=== PATIENT | female | born 2000 | race Caucasian/White ===

== ENCOUNTER 2018-01-22 23:40 | Emergency (ER) | payer SELFPAY ==
[2018-01-23] MEDS ORDERED: NORMAL SALINE 1000 ML 1,000 ML IV ONE (02:10)
--- NOTE | 2018-01-23 02:12 | ER Document Report ---
ED General - General Chief Complaint: Chest Pain Stated Complaint: CHEST PAIN Time Seen by Provider: 01/23/18 01:52 Mode of Arrival: Ambulatory Information source: Patient Notes: Patient presents with a 5 day history of abdominal cramping. Patient states she has had diarrhea for the past 2 weeks and typically has 3-7 bowel movements each day. Patient denies any nausea, vomiting or blood in her stool. Patient denies any fever or cough. Patient states that around 11 PM tonight she developed left-sided chest pain and left lateral rib tenderness. Patient denies any history of PE or DVT in the past. Patient denies any recent immobilization. TRAVEL OUTSIDE OF THE [place] IN LAST 30 DAYS: No - HPI Onset/Duration: Persistent Quality of pain: Achy, Cramping Pain Level: 3 Associated symptoms: Chest pain, Diarrhea. denies: Nonproductive cough, Productive cough, Fever, Nausea, Vomiting, Shortness of breath Exacerbated by: Movement Relieved by: Denies Similar symptoms previously: No Recently seen / treated by doctor: Yes - Related Data Allergies/Adverse Reactions: No Known Allergies Allergy (Verified 01/19/18 18:51) Past Medical History - General Information source: Patient - Social History Smoking Status: Never Smoker Chew tobacco use (# tins/day): No Drug Abuse: None Occupation: None Lives with: Spouse/Significant other Family History: Reviewed & Not Pertinent Patient has suicidal ideation: No Patient has homicidal ideation: No Renal/ Medical History: Denies: Hx Peritoneal Dialysis GI Medical History: Reports: Hx Gastroesophageal Reflux Disease Psychiatric Medical History: Reports: Hx Anxiety Surgical Hx: Negative Review of Systems - Review of Systems Constitutional: Recent illness - Recently evaluated for diarrhea symptoms EENT: No symptoms reported Cardiovascular: Chest pain. denies: Palpitations, Dizziness, Lightheaded Respiratory: No symptoms reported. denies: Cough, Short of breath Gastrointestinal: Abdominal pain, Diarrhea. denies: Nausea, Vomiting, Blood streaked bowels, Black stools, Rectal bleeding Genitourinary: No symptoms reported. denies: Dysuria Female Genitourinary: No symptoms reported. denies: Vaginal discharge, Vaginal bleeding Musculoskeletal: No symptoms reported. denies: Back pain Skin: No symptoms reported Hematologic/Lymphatic: No symptoms reported Neurological/Psychological: No symptoms reported Physical Exam - Vital signs Vitals: Temp Pulse Resp BP Pulse Ox 98.8 F 107 H 18 111/74 98 04/13/18 00:04 01/23/18 00:04 01/23/18 00:04 01/23/18 00:04 01/23/18 00:04 - General General appearance: Appears well, Alert In distress: None - HEENT Head: Normocephalic, Atraumatic Conjunctiva: Normal Nasal: Normal Mouth/Lips: Normal Mucous membranes: Normal Pharynx: Normal Neck: Normal, Supple. No: Lymphadenopathy - Respiratory Respiratory status: No respiratory distress Chest status: Tender, Pain on movement Breath sounds: Normal. No: Nonproductive cough, Rales, Rhonchi, Stridor, Wheezing Chest palpation: Tender - Cardiovascular Rhythm: Tachycardia Heart sounds: S1 appreciated, S2 appreciated Murmur: No - Abdominal Inspection: Normal Distension: No distension Bowel sounds: Normal Tenderness: Tender - generalized abd tenderness Organomegaly: No organomegaly - Back Back: Normal, Nontender. No: CVA tenderness - Extremities General upper extremity: Normal inspection, Normal ROM General lower extremity: Normal inspection, Normal ROM - Neurological Neuro grossly intact: Yes Cognition: Normal Nancy Coma Scale Eye Opening: Spontaneous Montgomery Coma Scale Verbal: Oriented Montgomery Coma Scale Motor: Obeys Commands Nancy Coma Scale Total: 15 - Psychological Associated symptoms: Normal affect, Normal mood - Skin Skin Temperature: Warm Skin Moisture: Dry Skin Color: Normal Course - Re-evaluation Re-evalutation: 01/23/18 04:30 RN states that pt eloped. Pt not in room. RN states that patient had mentioned something about her needing to leave to go to work. - Vital Signs Vital signs: Temp Pulse Resp BP Pulse Ox 98.8 F 90 20 114/65 98 01/23/18 00:04 01/23/18 04:00 01/23/18 04:00 01/23/18 04:00 01/23/18 04:00 - Laboratory Result Diagrams: 01/23/18 03:15 01/23/18 03:15 Laboratory results interpreted by me: 01/23/18 01/23/18 01/23/18 03:15 03:15 04:20 WBC 12.2 H Eosinophils % 16.6 H Absolute Eosinophils 2.0 H Sodium 145.4 H Urine Protein 100 H Urine Ketones 20 H Urine Urobilinogen 2.0 H Ur Leukocyte Esterase SMALL H Discharge - Discharge Clinical Impression: Abdominal pain Qualifiers: Abdominal location: unspecified location Qualified Code(s): R10.9 - Unspecified abdominal pain Chest pain Qualifiers: Chest pain type: unspecified Qualified Code(s): R07.9 - Chest pain, unspecified Diarrhea Qualifiers: Diarrhea type: unspecified type Qualified Code(s): R19.7 - Diarrhea, unspecified Disposition: ELOPED
[2018-01-23 03:27] LABS: ABSOLUTE LYMPHOCYTES (AUTO) 2.1 10^3/uL (0.5-4.7); ABSOLUTE MONOCYTES (AUTO) 0.6 10^3/uL (0.1-1.4); ABSOLUTE NEUT (AUTO) 7.4 10^3/uL (1.7-8.2); BASOPHILS % (AUTO) 0.3 % (0-2); EOSINOPHILS % (AUTO) 16.6 % (0-6); HEMATOCRIT 37.5 % (36.0-47.0); HEMOGLOBIN 12.9 g/dL (12.0-15.5); LYMPHOCYTES % (AUTO) 17.5 % (13-45); MEAN CORPUSCULAR HEMOGLOBIN 31.3 pg (27.0-33.4); MEAN CORPUSCULAR HGB CONC 34.5 g/dL (32.0-36.0); MEAN CORPUSCULAR VOLUME 91 fl (80-97); MONOCYTES % (AUTO) 4.7 % (3-13); PLATELET COUNT 307 10^3/uL (150-450); RED BLOOD COUNT 4.14 10^6/uL (3.72-5.28); RED CELL DISTRIBUTION WIDTH 11.9 % (11.5-14.0); SEGMENTED NEUTROPHILS % (AUTO) 60.9 % (42-78); TOTAL CELLS COUNTED % (AUTO) 100 %; WHITE BLOOD COUNT 12.2 10^3/uL (4.0-10.5)
[2018-01-23 03:37] LABS: ALANINE AMINOTRANSFERASE 21 U/L (5-35); ALBUMIN 4.1 g/dL (3.7-5.6); ALKALINE PHOSPHATASE 66 U/L (50-135); ANION GAP 15 (5-19); ASPARTATE AMINO TRANSFERASE 14 U/L (5-30); BILIRUBIN,DIRECT 0.2 mg/dL (0.0-0.4); BILIRUBIN,TOTAL 0.3 mg/dL (0.2-1.3); BLOOD UREA NITROGEN 8 mg/dL (7-20); CALCIUM 9.8 mg/dL (8.4-10.2); CARBON DIOXIDE 26 mmol/L (22-30); CHLORIDE 104 mmol/L (98-107); GLUCOSE 96 mg/dL (75-110); LIPASE 55.4 U/L (23-300); POTASSIUM 3.6 mmol/L (3.6-5.0); SODIUM 145.4 mmol/L (137-145); TOTAL PROTEIN 7.3 g/dL (6.3-8.2)
--- NOTE | 2018-01-23 03:49 | RADIOLOGY REPORT (SQ) ---
EXAM DESCRIPTION: CHEST 2 VIEWS CLINICAL HISTORY: 17 years Female, cp COMPARISON: None. NUMBER OF VIEWS/TECHNIQUE: 2, PA and Lateral LIMITATIONS: None. FINDINGS: Normal lung volume. Clear parenchyma. Normal cardiac silhouette. Intact bony thorax. IMPRESSION: No acute cardiopulmonary findings.
[2018-01-23 04:49] LABS: APPEARANCE,URINE SLIGHTLY-CLOUDY; BILIRUBIN,URINE NEGATIVE (NEGATIVE); COLOR,URINE AMBER; GLUCOSE, URINE NEGATIVE (NEGATIVE); KETONES,URINE 20 mg/dL (NEGATIVE); LEUKOCYTE ESTERASE,URINE SMALL (NEGATIVE); NITRITE,URINE NEGATIVE (NEGATIVE); PROTEIN,URINE 100 mg/dL (NEGATIVE); URINE SPECIFIC GRAVITY 1.029
[2018-01-23 04:51] VITALS: BP 114/65
--- NOTE | 2018-01-24 09:44 | EKG REPORT ---
SEVERITY:- ABNORMAL ECG - SINUS RHYTHM LEFT AXIS DEVIATION NONSPECIFIC T ABNORMALITIES, ANTERIOR LEADS : Confirmed by: Anuj Mari MD 24-Jan-2018 09:43:30
== END 2018-01-23 04:55 | disposition left against medical advice (07) ==
LOC: ER 23:40
DX: R07.9 Chest pain, unspecified (principal); R10.9 Unspecified abdominal pain; R19.7 Diarrhea, unspecified; R07.81 Pleurodynia
CPT/HCPCS: 93005; 99281; 96360; 96361; 36415; 83690; 84703; 85025; 80053; 81001; 84484; 71046; 93010; J7030

== ENCOUNTER 2018-03-11 14:43 | Emergency (ER) | payer SELFPAY ==
[2018-03-11] MEDS ORDERED: DIPHENHYDRAMINE HCL 50 MG CAPSULE PO ONE (16:41)
[2018-03-11] MEDS ORDERED: BUSPIRONE HCL 10 MG TABLET PO ONE (16:41)
--- NOTE | 2018-03-11 16:42 | ER Document Report ---
ED General - General Chief Complaint: Numbness Stated Complaint: CHEST PAIN/LEFT SIDE NUMBNESS Time Seen by Provider: 03/11/18 16:41 Notes: Chief complaint: Nervousness History of complain:( obtained from----patient) 17-year-old female presents today with general nervousness after taking a friend's trazodone. With a history of anxiety. She has been having anxiety for 4 years but not on any medication. Early this morning at 5:00 felt anxious nervous took the trazodone of unknown amount. 1 tablet. No fever chills or other constitutional symptoms Onset: As above Duration: Gradual Severity: Mild to moderate Quality: Unknown Context: Not applicable Exacerbating factor and relieving factors: None REVIEW OF SYSTEMS: CONSTITUTIONAL : Denies fever, chills, or sweats. Denies recent illness. EENT: Denies eye, ear, throat, or mouth pain or symptoms. Denies nasal or sinus congestion or discharge. Denies throat, tongue, or mouth swelling or difficulty swallowing. CARDIOVASCULAR: Denies chest pain. Denies palpitations or racing or irregular heart beat. Denies ankle edema. RESPIRATORY: Denies cough, cold, or chest congestion. Denies shortness of breath, difficulty breathing, or wheezing. GASTROINTESTINAL: Denies distention. Denies nausea, vomiting, or diarrhea. Denies blood in vomitus, stools, or per rectum. Denies black, tarry stools. Denies constipation. GENITOURINARY: Denies difficulty urinating, painful urination, burning, frequency, blood in urine, or discharge. FEMALE GENITOURINARY: Denies vaginal bleeding, heavy or abnormal periods, irregular periods. Denies vaginal discharge or odor. MUSCULOSKELETAL: Denies back or neck pain or stiffness. Denies joint pain or swelling. SKIN: Denies rash, lesions or sores. HEMATOLOGIC : Denies easy bruising or bleeding. LYMPHATIC: Denies swollen, enlarged glands. NEUROLOGICAL: Denies confusion or altered mental status. Denies passing out or loss of consciousness. Denies dizziness or lightheadedness. Denies headache. Denies weakness or paralysis or loss of use of either side. Denies problems with gait or speech. Denies sensory loss, numbness, or tingling. Denies seizures. PSYCHIATRIC: Denies anxiety or stress. Denies depression, suicidal ideation, or homicidal ideation. ALL OTHER SYSTEMS REVIEWED AND NEGATIVE. PHYSICAL EXAMINATION: GENERAL: Well-appearing, well-nourished and in no acute distress. HEAD: Atraumatic, normocephalic. EYES: Pupils equal round and reactive to light, extraocular movements intact, conjunctiva are normal. ENT: Nares patent, oropharynx clear without exudates. Moist mucous membranes. NECK: Normal range of motion, supple without lymphadenopathy LUNGS: Breath sounds clear to auscultation bilaterally and equal. No wheezes rales or rhonchi. HEART: Regular rate and rhythm without murmurs ABDOMEN: Soft, nontender, nondistended abdomen. No guarding, no rebound. No masses appreciated. Examination of genitals-deferred Musculoskeletal: Normal range of motion, no pitting or edema. No cyanosis. NEUROLOGICAL: Cranial nerves grossly intact. Normal speech, normal gait. Normal sensory, motor exams PSYCH: Normal mood, normal affect. Feeling anxious but not depressed or suicidal ideation SKIN: Warm, Dry, normal turgor, no rashes or lesions noted. Dictation was performed using [employer] voice recognition software TRAVEL OUTSIDE OF THE [place] IN LAST 30 DAYS: No - Related Data Allergies/Adverse Reactions: No Known Allergies Allergy (Verified 03/11/18 14:45) Past Medical History - Social History Smoking Status: Never Smoker Chew tobacco use (# tins/day): No Frequency of alcohol use: None Drug Abuse: None Family History: Reviewed & Not Pertinent Patient has suicidal ideation: No Patient has homicidal ideation: No Renal/ Medical History: Denies: Hx Peritoneal Dialysis GI Medical History: Reports: Hx Gastroesophageal Reflux Disease Psychiatric Medical History: Reports: Hx Anxiety Review of Systems - Review of Systems Notes: Appear to be dehydrated Physical Exam - Vital signs Vitals: Temp Pulse Resp BP Pulse Ox 98.6 F 90 16 106/74 99 03/11/18 14:53 03/11/18 14:53 03/11/18 14:53 03/11/18 14:53 03/11/18 14:53 - Notes Notes: Appear to be dehydrated Course - Vital Signs Vital signs: Temp Pulse Resp BP Pulse Ox 98.6 F 90 16 106/74 99 03/11/18 14:53 03/11/18 14:53 03/11/18 14:53 03/11/18 14:53 03/11/18 14:53 Discharge - Discharge Clinical Impression: Anxiety Condition: Fair Disposition: HOME, SELF-CARE Instructions: Anxiety ([facility]) Prescriptions: Buspirone HCl [Buspar 5 mg Tablet] 1 tab PO DAILY #15 tab
[2018-03-11 17:12] VITALS: BP 112/68
== END 2018-03-11 17:14 | disposition home or self-care (01) ==
LOC: ER 14:43
DX: F41.9 Anxiety disorder, unspecified (principal); R20.0 Anesthesia of skin; K21.9 Gastro-esophageal reflux disease without esophagitis
CPT/HCPCS: 99284

== ENCOUNTER 2018-09-29 07:53 | Emergency (ER) | payer SELFPAY ==
[2018-09-29] MEDS ORDERED: ACETAMINOPHEN 325 MG TABLET PO ONE (08:09)
--- NOTE | 2018-09-29 08:18 | ER Document Report ---
ED General - General Chief Complaint: Cold Symptoms Stated Complaint: COUGH,CONGESTION,HEADACHE Time Seen by Provider: 09/29/18 08:12 Notes: Patient is a 17-year-old female that presents to the emergency department for chief complaint of cough and sore throat. Patient states she has had about 4 days of cough, with productive sputum, occasionally green, she had associated headache with this and sore throat. She overall feels weak and had some chills. She denies any sick contacts, she did not receive the flu vaccine this year. She has had some sinus congestion associated with this, and sinus pressure. She denies having chest pain, or shortness of breath, but mainly the cough. No other complaints at this time. Patient reports a history of asthma, but does not currently have any medications for it at home. Past Medical History: Asthma Past Surgical History: Denies surgical history Social History: Denies tobacco, alcohol or illicit drug use. Family History: Reviewed and noncontributory for presenting illness Allergies: Reviewed, see documented allergy list. REVIEW OF SYSTEMS: Other than noted above, the 12 point review of systems was reviewed with the patient and were negative, all pertinent findings are included in the HPI. PHYSICAL EXAMINATION: Vital signs reviewed, nursing noted reviewed. GENERAL: Well-appearing, well-nourished and in no acute distress. HEAD: Atraumatic, normocephalic. EYES: Eyes appear normal, extraocular movements intact, sclera anicteric, conjunctiva are normal. ENT: nares patent, oropharynx clear without exudates. Moist mucous membranes. TMs appear normal bilaterally. NECK: Normal range of motion, supple without lymphadenopathy LUNGS: Patient does have bilateral trace wheezing, scattered throughout all lung partida, no acute respiratory distress HEART: Regular rate and rhythm without murmurs ABDOMEN: Soft, nontender, normoactive bowel sounds. No rebound, guarding, or rigidity. No masses appreciated. EXTREMITIES: Nontender, good range of motion, no pitting or edema. NEUROLOGICAL: No focal neurological deficits. Moves all extremities spontaneously Motor and sensory grossly intact on exam. PSYCH: Normal mood, normal affect. SKIN: Warm, Dry, normal turgor, no rashes or lesions noted on exposed skin TRAVEL OUTSIDE OF THE [place] IN LAST 30 DAYS: No - Related Data Allergies/Adverse Reactions: No Known Allergies Allergy (Verified 09/29/18 07:53) Past Medical History - Social History Smoking Status: Never Smoker Family History: Reviewed & Not Pertinent Renal/ Medical History: Denies: Hx Peritoneal Dialysis GI Medical History: Reports: Hx Gastroesophageal Reflux Disease Psychiatric Medical History: Reports: Hx Anxiety Physical Exam - Vital signs Vitals: Temp Pulse Resp BP Pulse Ox 98.0 F 88 15 106/59 L 98 09/29/18 07:57 09/29/18 07:57 09/29/18 07:57 09/29/18 07:57 09/29/18 07:57 Course - Re-evaluation Re-evalutation: Patient was given DuoNeb breathing treatment, she did have some wheezing on her exam, sounded improved on repeat evaluation, her chest x-ray was reviewed and negative for pneumonia, strep testing negative, influenza testing negative, this point I will discharge the patient home with an albuterol inhaler, and she is advised to follow-up with her primary care physician. Patient agreeable to plan of care and discharged home. - Vital Signs Vital signs: Temp Pulse Resp BP Pulse Ox 97.7 F 84 18 103/59 L 99 09/29/18 09:32 09/29/18 09:32 09/29/18 09:32 09/29/18 09:32 09/29/18 09:32 Discharge - Discharge Clinical Impression: URI (upper respiratory infection) Qualifiers: URI type: unspecified URI Qualified Code(s): J06.9 - Acute upper respiratory infection, unspecified Condition: Stable Disposition: HOME, SELF-CARE Additional Instructions: Please use the albuterol inhaler every 4-6 hours for the next 3-5 days, then as needed after that, he can also use [id number] medications to help with your symptoms and cough, he can also take the prescribed Tessalon Perles to help with her cough symptoms as well. Please follow-up with the primary care physician in 2-3 days. Prescriptions: Benzonatate [Tessalon Perles 100 mg Capsule] 100 mg PO Q8HP PRN #40 capsule PRN Reason: Cough Forms: Return to Work Referrals: POLINA ORDONEZ DO [NO LOCAL MD] - Follow up in 3-5 days
[2018-09-29] MEDS ORDERED: IPRATROPIUM/ALBUTEROL 0.5-2.5 MG/3 ML AMPUL NEB ONE (08:23)
--- NOTE | 2018-09-29 09:14 | RADIOLOGY REPORT (SQ) ---
EXAM DESCRIPTION: CHEST 2 VIEWS COMPLETED DATE/TIME: 09/29/2018 9:06 am REASON FOR STUDY: cough COMPARISON: 01/23/2018 EXAM PARAMETERS: NUMBER OF VIEWS: two views TECHNIQUE: Digital Frontal and Lateral radiographic views of the chest acquired. RADIATION DOSE: NA LIMITATIONS: none FINDINGS: LUNGS AND PLEURA: No opacities, masses or pneumothorax. No pleural effusion. MEDIASTINUM AND HILAR STRUCTURES: No masses or contour abnormalities. HEART AND VASCULAR STRUCTURES: Heart normal size. No evidence for failure. BONES: No acute findings. HARDWARE: None in the chest. OTHER: No other significant finding. IMPRESSION: Normal chest radiographs. No focal airspace opacity. TECHNICAL DOCUMENTATION: JOB ID: [id number] [employer]- All Rights Reserved Reading location - IP/workstation name: [email or web address]
[2018-09-29 09:23] LABS: A TYPE INFLUENZA AG NEGATIVE (NEGATIVE); B INFLUENZA AG NEGATIVE (NEGATIVE)
[2018-09-29] MEDS ORDERED: ALBUTEROL SULFATE HFA (90 MCG/PUFF) 8 GM MDI (1 MDI/ER DISP) IH SCH (09:30)
[2018-09-29 09:34] VITALS: BP 103/59
== END 2018-09-29 09:36 | disposition home or self-care (01) ==
LOC: ER 07:53
DX: J06.9 Acute upper respiratory infection, unspecified (principal); R51 Headache
CPT/HCPCS: 94640; 99283; 87070; 87880; 87804; 71046; J3490; J7620

== ENCOUNTER 2018-10-29 10:38 | Emergency (ER) | payer SELFPAY ==
--- NOTE | 2018-10-29 11:15 | ER Document Report ---
ED Medical Screen (RME) - General Chief Complaint: Flu Symptoms Stated Complaint: VOMITING AND COUGH Time Seen by Provider: 10/29/18 11:01 Mode of Arrival: Ambulatory Information source: Patient Notes: This is a 17-year-old female with no medical problems who is 14 weeks (first ) who presents to the emergency room with cough, congestion, sore throat, myalgias, subjective fevers and chills. TRAVEL OUTSIDE OF THE [place] IN LAST 30 DAYS: No - HPI Onset: This morning Onset/Duration: Gradual Quality of pain: Achy Severity: Mild Pain Level: 1 Associated Symptoms: Cough (nonproductive). denies: Shortness of breath Exacerbated by: Denies Relieved by: Denies Similar symptoms previously: No Recently seen / treated by doctor: No - Related Data Smoking: Non-smoker Frequency of alcohol use: None Drug Abuse: None Allergies/Adverse Reactions: No Known Allergies Allergy (Verified 10/29/18 10:39) Past Medical History - General Information source: Patient - Social History Cigarette use (# per day): No Chew tobacco use (# tins/day): No Frequency of alcohol use: None Drug Abuse: None Lives with: Family Family history: None - Medical History Medical History: Negative Renal/ Medical History: Denies: Hx Peritoneal Dialysis GI Medical History: Reports: Hx Gastroesophageal Reflux Disease Psychiatric Medical History: Reports: Hx Anxiety Surgical Hx: Negative Review of Systems - Review of Systems Constitutional: Chills, Fever - Patient states she has had subjective fevers. EENT: Nose congestion, Throat pain. denies: Difficulty swallowing Cardiovascular: denies: Chest pain, Palpitations, Heart racing Respiratory: Cough. denies: Hemoptysis, Short of breath, Wheezing Gastrointestinal: Nausea. denies: Abdominal pain, Vomiting Genitourinary: No symptoms reported Female Genitourinary: No symptoms reported Musculoskeletal: Muscle pain. denies: Joint pain, Neck pain Skin: No symptoms reported. denies: Rash Hematologic/Lymphatic: No symptoms reported Neurological/Psychological: denies: Confusion, Weakness, Headaches Physical Exam - Vital signs Vitals: Temp Pulse Resp BP Pulse Ox 98.1 F 96 H 17 112/60 100 10/29/18 10:42 10/29/18 10:42 10/29/18 10:42 10/29/18 10:42 10/29/18 10:42 Notes: Physical exam: GENERAL: 17-year-old female, alert and oriented x3, no acute distress HEAD: Atraumatic, normocephalic. EYES: Pupils equal round and reactive to light, extraocular movements intact, sclera anicteric, conjunctiva are normal. ENT: TMs normal, nasal congestion, oropharynx mildly erythematous without exudates. Moist mucous membranes. NECK: Normal range of motion, supple without obvious mass or JVD. LUNGS: Breath sounds clear to auscultation bilaterally and equal. No wheezes rales or rhonchi. HEART: Regular rate and rhythm without murmurs, rubs or gallops. ABDOMEN: Soft, normoactive bowel sounds. No tenderness to palpation. No guarding, no rebound. No masses appreciated. EXTREMITIES: Normal range of motion, no pitting or edema. No clubbing or cyanosis. NEUROLOGICAL: Cranial nerves II through XII grossly intact. Normal speech, moving all extremities. PSYCH: Normal mood, normal affect. SKIN: Warm, Dry, normal turgor, no rashes or lesions noted. Course - Re-evaluation Re-evalutation: 10/29/18 12:08 Note: Patient does appear comfortable on repeat evaluation. Her oxygen level was 100% on air. She is smiling. Her lungs are clear. Given that her father tested positive for influenza 2 days ago and her symptoms just develop, we will treat with Tamiflu. She is 14 weeks . I have advised her to rest, drink plenty of fluids and to return if worsen. - Vital Signs Vital signs: Temp Pulse Resp BP Pulse Ox 98.1 F 96 H 17 112/60 100 10/29/18 10:42 10/29/18 10:42 10/29/18 10:42 10/29/18 10:42 10/29/18 10:42 Doctor's Discharge - Discharge Clinical Impression: Influenza-like illness Condition: Stable Disposition: HOME, SELF-CARE Additional Instructions: Note: Your strep test was negative. Based upon your symptoms and the fact that your father is documented influenza A 2 days ago, we are going to treat you with Tamiflu. It is safe in . I want you to rest, drink plenty of fluids, take medicine as prescribed. Start the Tamiflu today. Return to the emergency room for shortness of breath, any neck stiffness or light bothering the eyes or any concerns that you are getting worse. Prescriptions: Oseltamivir Phosphate [Tamiflu 75 mg Capsule] 75 mg PO BID #10 capsule Forms: Return to Work
[2018-10-29 12:06] VITALS: BP 104/62
== END 2018-10-29 12:06 | disposition home or self-care (01) ==
LOC: ER 10:38
DX: R05 Cough (principal); R09.81 Nasal congestion; J02.9 Acute pharyngitis, unspecified; M79.10 Myalgia, unspecified site; R50.9 Fever, unspecified; O21.9 Vomiting of pregnancy, unspecified; O26.891 Other specified pregnancy related conditions, first trimester
CPT/HCPCS: 87070; 87880; 99283

== ENCOUNTER → 2018-12-09 | Outpatient (CLI) | payer MEDICAID ==
--- NOTE | 2018-12-09 15:20 | RADIOLOGY REPORT (SQ) ---
EXAM DESCRIPTION: U/S OB 14+ TRNABD 1GES W/O DOP COMPLETED DATE/TIME: 12/09/2018 2:55 pm REASON FOR STUDY: ENCTR FOR SUPERVISION OF NORMAL FIRST , SECOND TRIMESTER (Z34.02) Z34.02 ENCNTR FOR SUPRVSN OF NORMAL FIRST PREG, SECOND TRIME COMPARISON: 11/10/2018. TECHNIQUE: Static and Dynamic grayscale imaging performed of gravid uterus using transabdominal appr oach. Additional selected color Doppler and spectral images recorded. All stored on PACS. LIMITATIONS: None. FINDINGS: FETUSES SEEN:1 EGA: 19 week 4 day. Calculated using BPD,FL,HC,AC documented on images. No discrepancy with clinical dates. DAVID: 05/01/2019. EFW: 298 grams PERCENTILE: Not applicable. Fetus less than or equal to 20 weeks gestation. SARATH: Largest pocket 5.6 cm. PLACENTA: Anterior. GRADE: I PRESENTATION: Cephalic. ANATOMY: HEART RATE: 133 beats per minute. FOUR CHAMBER HEART: Visualized. THREE VESSEL CORD: Yes. CORD INSERTION: Visualized. KIDNEYS AND BLADDER: Visualized. Appear normal. STOMACH: Visualized. Appears normal. SPINE: Normal as visualized. BRAIN AND LATERAL VENTRICLES: Visualized. Appear normal. OTHER: No other significant finding. MATERNAL ADNEXA: Maternal ovaries not visualized. CERVICAL LENGTH: 2.8 cm. Closed. OTHER: No other significant finding. IMPRESSION: LIVING INTRAUTERINE . ESTIMATED GESTATIONAL AGE 19 WEEK 4 DAY. NO VISUALIZED ANOMALIES. Trimester of : Second trimester - 13 weeks 1 day to 27 weeks 6 days. TECHNICAL DOCUMENTATION: JOB ID: [id number] [employer]- All Rights Reserved Reading location - IP/workstation name: [email or web address]
== END ==
LOC: RAD 13:34
PROVIDERS: ATTEND Nurse Practitioner
DX: Z34.02 Encounter for supervision of normal first pregnancy, second trimester (principal)
CPT/HCPCS: 76805

== ENCOUNTER 2019-04-24 22:31 | Outpatient (CLI) | payer MEDICAID ==
[2019-04-24 23:24] LABS: APPEARANCE,URINE CLOUDY; BILIRUBIN,URINE NEGATIVE (NEGATIVE); GLUCOSE, URINE NEGATIVE (NEGATIVE); KETONES,URINE NEGATIVE (NEGATIVE); LEUKOCYTE ESTERASE,URINE MODERATE (NEGATIVE); NITRITE,URINE NEGATIVE (NEGATIVE); PROTEIN,URINE 30 mg/dL (NEGATIVE); URINE SPECIFIC GRAVITY 1.027; UROBILINOGEN,URINE NEGATIVE mg/dL (<2.0)
[2019-04-24 23:27] LABS: COLOR,URINE DARK YELLOW
[2019-04-24 23:43] LABS: URINE AMPHETAMINES SCREEN NEGATIVE; URINE BARBITURATES SCREEN NEGATIVE; URINE BENZODIAZEPINES SCREEN NEGATIVE; URINE COCAINE SCREEN NEGATIVE; URINE METHADONE SCREEN NEGATIVE; URINE PHENCYCLIDINE SCREEN NEGATIVE
[2019-04-24 23:57] LABS: URINE MARIJUANA (THC) SCREEN UNCONFIRMED POSITIVE
== END 2019-04-25 00:11 | disposition home or self-care (01) ==
LOC: LC 22:31
PROVIDERS: ATTEND Obstetrics & Gynecology
DX: O47.03 False labor before 37 completed weeks of gestation, third trimester (principal); Z3A.39 39 weeks gestation of pregnancy
CPT/HCPCS: 59025; 81005; 80307; G0480 ×2; 80349

== ENCOUNTER 2019-09-22 12:11 | Emergency (ER) | payer MEDICAID ==
[2019-09-22 13:01] VITALS: BP 108/64
--- NOTE | 2019-09-22 13:13 | ER Document Report ---
ED Medical Screen (RME) - General Chief Complaint: Numbness Stated Complaint: BODY NUMBNESS Time Seen by Provider: 09/22/19 13:03 Primary Care Provider: VINITA NASSAR APRN [Primary Care Provider] - Follow up as needed Mode of Arrival: Ambulatory Information source: Patient Notes: 18-year-old female presented to ED for complaint of numbness to the right side o f her body. She states that she had some neck pain and a headache yesterday. She states this morning the whole right side of her body has been feeling numb and she still has a neck pain. She states about 2 hours ago she "brain flatlined "and she felt like she was seeing white stars and spots and everything shut down but she was able to still sit up she did not fall. She states now she is having weakness and numbness to the right arm and leg. I see no obvious neurological deficits. She has no facial droop, no palmar drift, she is able to lift both legs, she is able to remember 3 things, she is only able to tell the day, and she is able to speak clearly. Patient is able to walk. I have greeted and performed a rapid initial assessment of this patient. A comprehensive ED assessment and evaluation of the patient, analysis of test results and completion of medical decision making process will be conducted by an additional ED providers. TRAVEL OUTSIDE OF THE [place] IN LAST 30 DAYS: No - Related Data Allergies/Adverse Reactions: nitrofurantoin [From Macro[employer]] Allergy (Verified 04/24/19 22:39) Past Medical History - Social History Family history: None Renal/ Medical History: Denies: Hx Peritoneal Dialysis GI Medical History: Reports: Hx Gastroesophageal Reflux Disease Psychiatric Medical History: Reports: Hx Anxiety Physical Exam - Vital signs Vitals: Temp Pulse Resp BP Pulse Ox 98.7 F 72 16 108/64 98 09/22/19 12:59 09/22/19 12:59 09/22/19 12:59 09/22/19 12:59 09/22/19 12:59 Course - Vital Signs Vital signs: Temp Pulse Resp BP Pulse Ox 98.7 F 72 16 108/64 98 09/22/19 13:03 09/22/19 12:59 09/22/19 13:03 09/22/19 12:59 09/22/19 13:03 Doctor's Discharge - Discharge Referrals: VINITA NASSAR, THREAD INSPECTOR [Primary Care Provider] - Follow up as needed
--- NOTE | 2019-09-22 13:31 | ER Document Report ---
ED General - General Chief Complaint: Numbness Stated Complaint: BODY NUMBNESS Time Seen by Provider: 09/22/19 13:03 Primary Care Provider: VINITA NASSAR APRN [NO LOCAL MD] - Follow up as needed Mode of Arrival: Ambulatory - Will consult reportedly per EM staff who did a rapid screening initially Cannot obtain history due to: Other - Eloped prior to me being able to assess and interview. I had checked vital signs and had read the rapid screening assessment done upfront by provider. I knew the patient was ambulatory without difficulty moving all extremities with intention and had and overall was nonfocal without neuro deficits. TRAVEL OUTSIDE OF THE [place] IN LAST 30 DAYS: No - Related Data Allergies/Adverse Reactions: nitrofurantoin [From Macrobid] Allergy (Verified 04/24/19 22:39) Past Medical History - General Information source: Patient - I was unable to confirm the past medical history but did review this in food here that was reviewed per staff front. - Social History Smoking Status: Unknown if Ever Smoked - I was unable to confirm the past medical history but did review this in food here that was reviewed per staff front. Family History: Reviewed & Not Pertinent - I was unable to confirm the family history but did review info populated in my note here that was entered and obtained per staff up front. Patient has suicidal ideation: No Patient has homicidal ideation: No Renal/ Medical History: Denies: Hx Peritoneal Dialysis GI Medical History: Reports: Hx Gastroesophageal Reflux Disease Psychiatric Medical History: Reports: Hx Anxiety Review of Systems - Review of Systems -: Yes ROS unobtainable due to patient's medical condition - Unable to obtain myself prior to patient eloping before me seeing her Physical Exam - Vital signs Vitals: Temp Pulse Resp BP Pulse Ox 98.7 F 72 16 108/64 98 09/22/19 12:59 09/22/19 12:59 09/22/19 12:59 09/22/19 12:59 09/22/19 12:59 Reviewed vital signs which were within normal limits, only reviewed exams noted by staff and medical screening exam by provider upfront Interpretation: Normal Course - Re-evaluation Re-evalutation: 09/23/19 00:07 Patient eloped after she was in an ER room here but, prior to my interview and examination of her - Vital Signs Vital signs: Temp Pulse Resp BP Pulse Ox 98.7 F 72 16 108/64 98 09/22/19 13:03 09/22/19 12:59 09/22/19 13:03 09/22/19 12:59 09/22/19 13:03 Discharge - Discharge Clinical Impression: Numbness Disposition: ELOPED Referrals: VINITA NASSAR APRN [NO LOCAL MD] - Follow up as needed
== END 2019-09-22 15:20 | disposition left against medical advice (07) ==
LOC: ER 12:11
DX: R20.0 Anesthesia of skin (principal)
CPT/HCPCS: 99281